=== PATIENT | male | born 1965 | race Caucasian/White ===

== ENCOUNTER 2017-03-27 17:49 | Emergency (ER) | payer BC ==
[2017-03-27] MEDS ORDERED: TETANUS/DIPHTHERIA/PERTUSSIS 0.5 ML SYRINGE IM ONE ×3 (17:57→18:31)
[2017-03-27 17:59] VITALS: BP 125/84
--- NOTE | 2017-03-27 18:57 | ED Physician Documentation ---
PD HPI UPPER EXT INJURY - Stated complaint Stated Complaint: LT HAND INJ - Chief complaint Chief Complaint: Ext Problem - History obtained from History obtained from: Patient - History of Present Illness Location: Left, Hand (dorsum) Type of injury: Foreign body (splinter 2 weeks ago and he hoped it would work out. Starting to get red and tender.) Timing - onset: How many weeks ago (2) Timing - details: Abrupt onset, Still present Associated symptoms: Swelling, Discolored (redness for few days). No: Weakness , Numbness, Tingling Review of Systems Constitutional: denies: Fever, Chills Neurologic: denies: Focal weakness, Numbness PD PAST MEDICAL HISTORY - Past Medical History Past Medical History: No Neuro: Head injury - Past Surgical History Past Surgical History: Yes Ortho: Arthroscopic surgery - Present Medications Home Medications: Ambulatory Orders Medication Instructions Recorded Confirmed Sulfamethox/Trimeth 800/160 1 each PO BID #14 tablet 03/27/17 [Bactrim Ds 800/160] - Allergies Allergies/Adverse Reactions: Allergies Allergy/AdvReac Type Severity Reaction Status Date / Time No Known Drug Allergies Allergy Verified 03/27/17 18:24 - Social History Does the pt smoke?: Yes Smoking Status: Current every day smoker Does the pt drink ETOH?: No Does the pt have substance abuse?: No - Immunizations Immunizations are current?: No Immunizations: TDAP >10years/unknown - POLST Patient has POLST: No PD ED PE NORMAL - Vitals Vital signs reviewed: Yes - General General: Alert and oriented X 3, No acute distress, Well developed/nourished - Derm Derm: Normal color, Warm and dry - Extremities Extremities: Other (Dorsum of hand with tenderness and U/S bedside found splinter FB. Mild redness without pus. ) Results - Vitals Vitals: Oxygen O2 Source Room air Procedures - FB removal FB location: Subcutaneous FB removal preparation: Local anesthesia-specify (lido with epi) Removal method: Foreceps, Incision, Under sono guidance FB removal aftercare: No complications, Patient tolerated well, Removed successfully PD MEDICAL DECISION MAKING - ED course Complexity details: re-evaluated patient (was able to get splinter out after incision. ), considered differential, d/w patient Departure - Departure Disposition: 01 Home, Self Care Clinical Impression: Foreign body hand-infection Qualifiers: Encounter type: initial encounter Laterality: left Qualified Code(s): S60.552A - Superficial foreign body of left hand, initial encounter Condition: Stable Record reviewed to determine appropriate education?: Yes Instructions: ED Foreign Body Splinter Removal Prescriptions: Sulfamethox/Trimeth 800/160 [Bactrim Ds 800/160] 1 each PO BID #14 tablet Comments: Soak hand in warm water 2-3 times daily. Bactrim twice daily for 4-5 days until infection fully gone. Tylenol or Ibuprofen as needed for pains. Recheck if not fully better over the next several days. Discharge Date/Time: 03/27/17 19:32
[2017-03-27] MEDS ORDERED: SULFAMETH/TRIMETH DS 800/160 MG TABLET PO STA (19:21)
[2017-03-27] MEDS ORDERED: IBUPROFEN 800 MG TABLET PO STA (19:21)
[2017-03-27] MEDS ORDERED: SULFAMETH/TRIMETH DS 800/160 MG TABLET PO ONE (19:29)
[2017-03-27] MEDS ORDERED: IBUPROFEN 800 MG TABLET PO ONE (19:29)
== END 2017-03-27 19:32 | disposition home or self-care (01) ==
LOC: ED 17:49
DX: S60.552A Superficial foreign body of left hand, initial encounter (principal); L08.9 Local infection of the skin and subcutaneous tissue, unspecified; W45.8XXA Other foreign body or object entering through skin, initial encounter; Z23 Encounter for immunization; F17.200 Nicotine dependence, unspecified, uncomplicated
CPT/HCPCS: 10120; 90471; 90715; 99283; A9270

== ENCOUNTER 2019-01-16 23:09 | Emergency (ER) | payer SELFPAY ==
[2019-01-16 23:58] LABS: ALBUMIN/GLOBULIN RATIO 1.4 (1.0-2.2); BILIRUBIN,TOTAL 0.3 mg/dL (0.2-1.0); CALCIUM 8.8 mg/dL (8.5-10.3); CREATININE 1.3 mg/dL (0.6-1.2); TOTAL PROTEIN 6.8 g/dL (6.7-8.2)
[2019-01-17 00:05] LABS: BASOPHILS # (AUTO) 0.1 10^3/uL (0.0-0.1); BASOPHILS % (AUTO) 0.9 %; EOSINOPHILS # (AUTO) 0.2 10^3/uL (0.0-0.7); EOSINOPHILS % (AUTO) 3.7 %; HGB - HEMOGLOBIN 13.8 g/dL (14.0-18.0); LYMPHOCYTES # (AUTO) 2.1 10^3/uL (1.5-3.5); LYMPHOCYTES % (AUTO) 33.3 %; MEAN CORPUSCULAR HEMOGLOBIN 31.5 pg (27.0-31.0); MEAN CORPUSCULAR HGB CONC 34.5 g/dL (32.0-36.0); MEAN CORPUSCULAR VOLUME 91.3 fL (80.0-94.0); MEAN PLATELET VOLUME 8.2 fL (7.4-11.4); MONOCYTES # (AUTO) 0.5 10^3/uL (0.0-1.0); MONOCYTES % (AUTO) 8.4 %; NEUTROPHILS # (AUTO) 3.4 10^3/uL (1.5-6.6); NEUTROPHILS % (AUTO) 53.7 %; PLT - PLATELET COUNT 203 10^3/uL (130-450); RED BLOOD COUNT 4.38 10^6/uL (4.70-6.10); RED CELL DISTRIBUTION WIDTH 14.3 % (12.0-15.0); WHITE BLOOD COUNT 6.4 x10^3/uL (4.8-10.8)
[2019-01-17] MEDS ORDERED: KETOROLAC 30 MG/ML VIAL IVP STA (00:13)
--- NOTE | 2019-01-17 00:14 | ED Physician Documentation ---
History of Present Illness - Stated complaint Stated Complaint: CP/SOA/HEADACHE - Chief complaint Chief Complaint: Cardiac - History obtained from History obtained from: Patient, Family - History of Present Illness Timing: How many hours ago (2) Pain level max: 6 Pain level now: 0 - Additonal information Additional information: 53-year-old male states that he was awoken from sleep by sharp left-sided chest pain. Lasted approximately 3-5 seconds. Has not recurred. He also has had a headache, mainly on the left side for the past few hours. Has not taken anything for this. No fevers. No rhinorrhea or congestion. No vision changes. No vomiting. Nothing makes it better or worse. Does drink energy drinks. 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 No leg swelling. No difficulty breathing. Review of Systems Ten Systems: 10 systems reviewed and negative Constitutional: denies: Fever, Chills Throat: denies: Sore throat Cardiac: denies: Pedal edema, Calf pain Respiratory: denies: Dyspnea, Cough, Hemoptysis, Wheezing GI: denies: Abdominal Pain, Vomiting, Diarrhea Skin: denies: Rash Musculoskeletal: denies: Neck pain, Back pain Neurologic: denies: Headache PD PAST MEDICAL HISTORY - Past Medical History Past Medical History: No - Past Surgical History Past Surgical History: Yes Ortho: Arthroscopic surgery - Present Medications Home Medications: Ambulatory Orders Medication Instructions Recorded Confirmed Sulfamethox/Trimeth 800/160 1 each PO BID #14 tablet 03/27/17 [Bactrim Ds 800/160] - Allergies Allergies/Adverse Reactions: Allergies Allergy/AdvReac Type Severity Reaction Status Date / Time No Known Drug Allergies Allergy Verified 03/27/17 18:24 - Social History Does the pt smoke?: Yes Smoking Status: Current every day smoker Does the pt drink ETOH?: No Does the pt have substance abuse?: No - Immunizations Immunizations are current?: Yes Immunizations: TDAP >10years/unknown - POLST Patient has POLST: No PD ED PE NORMAL - Vitals Vital signs reviewed: Yes - General General: Alert and oriented X 3, No acute distress, Well developed/nourished - HEENT HEENT: PERRL, Ears normal, Moist mucous membranes, Pharynx benign - Neck Neck: Supple, no meningeal sign - Cardiac Cardiac: RRR, No murmur, Strong equal pulses - Respiratory Respiratory: No respiratory distress, Clear bilaterally - Abdomen Abdomen: Soft, Non tender, Non distended - Derm Derm: Warm and dry - Extremities Extremities: No edema, No calf tenderness / cord - Neuro Neuro: Alert and oriented X 3 - Psych Psych: Normal mood, Normal affect Results - Vitals Vitals: Vital Signs - 24 hr 01/16/19 01/16/19 01/17/19 23:14 23:26 01:11 Temperature 36.7 C 36.9 C Heart Rate 74 68 70 Respiratory 16 18 15 Rate Blood Pressure 115/74 114/75 102/65 O2 Saturation 98 97 98 Oxygen O2 Source Room air - EKG (time done) 2321 Rate: Rate (enter#) (69) Rhythm: NSR [place]: Normal Intervals: Normal [place] QRS: Normal Ischemia: Normal ST segments - Labs Labs: Laboratory Tests 01/16/19 01/16/19 01/16/19 23:30 23:30 23:30 WBC 6.4 RBC 4.38 L Hgb 13.8 L Hct 40.0 L MCV 91.3 MCH 31.5 H MCHC 34.5 RDW 14.3 Plt Count 203 MPV 8.2 Neut # (Auto) 3.4 Lymph # (Auto) 2.1 [place] # (Auto) 0.5 Eos # (Auto) 0.2 Baso # (Auto) 0.1 Absolute Nucleated RBC 0.00 Nucleated RBC % 0.0 Sodium 137 Potassium 3.6 Chloride 106 Carbon Dioxide 24 Anion Gap 7.0 BUN 19 Creatinine 1.3 H Estimated GFR (MDRD) 58 L Glucose 104 H Calcium 8.8 Total Bilirubin 0.3 AST 23 ALT 17 Alkaline Phosphatase 44 Troponin I < 0.04 Total Protein 6.8 Albumin 4.0 Globulin 2.8 Albumin/Globulin Ratio 1.4 Lipase 48 - Rads (name of study) cxr Radiology: Prelim report reviewed, EMP read contemporaneously, See rad report (No acute disease) PD MEDICAL DECISION MAKING - ED course Complexity details: reviewed results, re-evaluated patient, considered differential (No ST elevation ND, no aortic dissection, no PE, no tension pneumothorax, no aortic aneurysm), d/w patient, d/w family ED course: 53-year-old male with what sounds like palpitations. Does not appear consistent with acute coronary syndrome. No acute findings on EKG. No abnormalities on telemetry or laboratory testing. Headache resolved. Patient counseled regarding signs and symptoms for which I believe and urgent re-evaluation would be necessary. Patient with good understanding of and agreement to plan and is comfortable going home at this time This document was made in part using voice recognition software. While efforts are made to proofread this document, sound alike and grammatical errors may occur. Departure - Departure Disposition: 01 Home, Self Care Clinical Impression: Intermittent palpitations Condition: Good Instructions: ED Palpitations Follow-Up: your,doctor in 1 week [Other] Comments: Return if you worsen. Follow-up with your doctor for further care. There are no acute abnormalities on your testing tonight. Forms: Activity restrictions Discharge Date/Time: 01/17/19 01:15
--- NOTE | 2019-01-17 00:17 | XRAY Report ---
Reason: chest pain Procedure Date: 01/16/2019 Accession Number: [id number] / [id number] Procedure: XR - Chest 1 View X-Ray CPT Code: 90414 FULL RESULT: EXAM: CHEST RADIOGRAPHY EXAM DATE: 01/16/2019 11:54 PM. CLINICAL HISTORY: Chest pain. COMPARISON: None. TECHNIQUE: 1 view. FINDINGS: Lungs/Pleura: No dense consolidation. No large effusion or pneumothorax. No pulmonary edema. Mediastinum: Heart and mediastinal contours are unremarkable. Other: None. IMPRESSION: No acute radiographic pulmonary abnormalities. RADIA
[2019-01-17 01:12] VITALS: BP 102/65
== END 2019-01-17 01:15 | disposition home or self-care (01) ==
LOC: ED 23:09
DX: R00.2 Palpitations (principal); F17.200 Nicotine dependence, unspecified, uncomplicated
CPT/HCPCS: 36415; 71045; 80053; 83690; 84484; 85025; 93005; 96374; 99283

== ENCOUNTER 2019-04-26 17:30 | Emergency (ER) | payer BC ==
--- NOTE | 2019-04-26 18:46 | ED Physician Documentation ---
PD HPI LOWER EXT INJURY - Stated complaint Stated Complaint: LT LEG REDNESS AND PX - Chief complaint Chief Complaint: Ext Problem - History obtained from History obtained from: Patient - History of Present Illness PD HPI LOW EXT INJURY LOCATION: Left (He developed pain of the medial thigh on the left that over the last few days has moved up a little bit with some swelling and redness. No chest pain or shortness of breath. No injury.) Review of Systems Constitutional: reports: Reviewed and negative Throat: reports: Reviewed and negative Cardiac: reports: Reviewed and negative PD PAST MEDICAL HISTORY - Past Surgical History Past Surgical History: Yes Ortho: Arthroscopic surgery - Present Medications Home Medications: Ambulatory Orders Medication Instructions Recorded Confirmed Sulfamethox/Trimeth 800/160 1 each PO BID #14 tablet 03/27/17 [Bactrim Ds 800/160] Rivaroxaban [Xarelto] 15 mg PO BID 21 Days #42 tablet 04/26/19 Rivaroxaban [Xarelto] 20 mg PO DAILY #30 tablet 04/26/19 - Allergies Allergies/Adverse Reactions: Allergies Allergy/AdvReac Type Severity Reaction Status Date / Time No Known Drug Allergies Allergy Verified 03/27/17 18:24 - Social History Does the pt smoke?: Yes Smoking Status: Current every day smoker Does the pt drink ETOH?: No Does the pt have substance abuse?: No - Immunizations Immunizations are current?: Yes Immunizations: TDAP >10years/unknown - POLST Patient has POLST: No PD ED PE NORMAL - Vitals Vital signs reviewed: Yes - General General: Alert and oriented X 3, No acute distress - Extremities Extremities: Other (Mild tenderness, swelling, and cord formation of the medial thigh over the sartorius.) - Neuro Neuro: Alert and oriented X 3, Normal speech Results - Vitals Vitals: Vital Signs - 24 hr 04/26/19 04/26/19 17:50 19:09 Temperature 36.6 C Heart Rate 76 70 Respiratory 16 16 Rate Blood Pressure 125/79 142/79 H O2 Saturation 98 98 Oxygen O2 Source Room air PD MEDICAL DECISION MAKING - ED course ED course: 53-year-old gentleman with superficial venous thrombosis of the left leg, it is, as far as superficial thromboses ago, pretty extensive and starting to approach the CFV. As discussed with the patient I recommended anticoagulation pending follow-up and he agrees. Departure - Departure Disposition: 01 Home, Self Care Clinical Impression: Acute superficial venous thrombosis of left lower extremity Condition: Good Record reviewed to determine appropriate education?: Yes Instructions: ED DVT Prescriptions: Rivaroxaban [Xarelto] 15 mg PO BID 21 Days #42 tablet Rivaroxaban [Xarelto] 20 mg PO DAILY #30 tablet Comments: The blood thinner starts at 15 mg twice a day for the first 3 weeks, then just 20 mg once a day. You need to follow-up with your doctor in that timeframe, consider repeat ultrasound to see if it resolves, if so they may want to stop the blood thinner. Return if worse. Discharge Date/Time: 04/26/19 20:24
[2019-04-26 19:10] VITALS: BP 142/79
[2019-04-26] MEDS ORDERED: RIVAROXABAN 15 MG TABLET PO STA (20:14)
--- NOTE | 2019-04-26 20:14 | Ultrasound Report ---
Reason: leg pain Procedure Date: 04/26/2019 Accession Number: [id number] / [id number] Procedure: US - Duplex Ext Veins Left CPT Code: FULL RESULT: EXAM: LEFT LOWER EXTREMITY VENOUS ULTRASOUND EXAM DATE: 04/26/2019 07:02 PM. CLINICAL HISTORY: Leg pain. Left leg pain. COMPARISON: None. TECHNIQUE: Real-time sonographic vascular imaging was performed by the vice president of brand management through the lower extremity utilizing both color-flow and Doppler spectral analysis. Multiple financial sales representative static images were saved for review. FINDINGS: Common Femoral Vein (CFV): Normal. CFV-GSV [place]: Normal. Profunda Femoral Vein (PFV): Normal. Femoral Vein (FV) Prox: Normal. Femoral Vein (FV) Mid: Normal. Femoral Vein (FV) Dist: Normal. Popliteal Vein: Normal. Posterior Tibial Veins: Normal. Peroneal Veins: Normal. Other: Left greater saphenous vein superficial nonocclusive thrombosis seen at the proximal to distal aspect is in the thigh. IMPRESSION: No evidence for deep venous thrombosis. Left greater saphenous vein superficial nonocclusive thrombosis seen at the proximal to distal aspect is in the thigh. [facility] The call report notification system was initiated by Dr. Leydi Kennedy at 08:09 PM on 04/26/2019. The above critical result findings were discussed with Semaj Fox by Dr. Leydi Kennedy at 08:12 PM on 04/26/2019.
== END 2019-04-26 20:24 | disposition home or self-care (01) ==
LOC: ED 17:30
DX: I82.812 Embolism and thrombosis of superficial veins of left lower extremity (principal); F17.200 Nicotine dependence, unspecified, uncomplicated
CPT/HCPCS: 93971; 99283; A9270

== ENCOUNTER 2019-08-11 11:23 | Emergency (ER) | payer BC ==
[2019-08-11 12:02] LABS: BASOPHILS # (AUTO) 0.1 10^3/uL (0.0-0.1); BASOPHILS % (AUTO) 0.7 %; EOSINOPHILS # (AUTO) 0.2 10^3/uL (0.0-0.7); EOSINOPHILS % (AUTO) 2.6 %; HGB - HEMOGLOBIN 14.4 g/dL (14.0-18.0); LYMPHOCYTES # (AUTO) 1.5 10^3/uL (1.5-3.5); MEAN CORPUSCULAR HEMOGLOBIN 31.1 pg (27.0-31.0); MEAN CORPUSCULAR HGB CONC 33.2 g/dL (32.0-36.0); MEAN CORPUSCULAR VOLUME 93.7 fL (80.0-94.0); MEAN PLATELET VOLUME 9.4 fL (7.4-11.4); MONOCYTES # (AUTO) 0.6 10^3/uL (0.0-1.0); MONOCYTES % (AUTO) 8.4 %; NEUTROPHILS % (AUTO) 67.9 %; PLT - PLATELET COUNT 191 10^3/uL (130-450); RED BLOOD COUNT 4.63 10^6/uL (4.70-6.10); RED CELL DISTRIBUTION WIDTH 13.3 % (12.0-15.0); WHITE BLOOD COUNT 7.4 x10^3/uL (4.8-10.8)
[2019-08-11 12:12] LABS: ALBUMIN 4.1 g/dL (3.2-5.5); ALBUMIN/GLOBULIN RATIO 1.3 (1.0-2.2); BILIRUBIN,TOTAL 0.7 mg/dL (0.2-1.0); CALCIUM 8.9 mg/dL (8.5-10.3); CREATININE 1.3 mg/dL (0.6-1.2); TOTAL PROTEIN 7.2 g/dL (6.7-8.2)
[2019-08-11] MEDS ORDERED: ASPIRIN CHEW 81 MG TABLET PO STA (12:15)
--- NOTE | 2019-08-11 12:17 | ED Physician Documentation ---
PD HPI CHEST PAIN - Stated complaint Stated Complaint: CP/DIZZINESS - Chief complaint Chief Complaint: Cardiac - History obtained from History obtained from: Patient - History of Present Illness Timing - onset: Last night (53-year-old gentleman with history of DVT on warfarin presents with substernal chest pressure starting last night that developed into radiating back pain today. The pain is not severe but is concerning because of its location. It was fairly constant. He also notes that he has chronically in a regular heartbeat and he felt more pauses and presyncope last night than normal. He had a stress test before, he says it was negative but it was 7 or 8 years ago. His legs are bothering him at all now.) Review of Systems Ten Systems: 10 systems reviewed and negative Constitutional: denies: Fever, Chills, Fatigue Cardiac: denies: Pedal edema, Calf pain Respiratory: denies: Dyspnea, Cough, Hemoptysis, Wheezing PD PAST MEDICAL HISTORY - Past Surgical History Past Surgical History: Yes Ortho: Arthroscopic surgery - Present Medications Home Medications: Ambulatory Orders Medication Instructions Recorded Confirmed Albuterol Sulf [Ventolin Hfa 1 - 2 puffs INH Q4HR PRN #1 inhaler 08/11/19 Inhaler] Rivaroxaban [Xarelto] 10 mg PO DAILY 08/11/19 - Allergies Allergies/Adverse Reactions: Allergies Allergy/AdvReac Type Severity Reaction Status Date / Time No Known Drug Allergies Allergy Verified 08/11/19 11:37 - Social History Does the pt smoke?: Yes Smoking Status: Current every day smoker Does the pt drink ETOH?: No Does the pt have substance abuse?: No - Immunizations Immunizations are current?: Yes Immunizations: TDAP >10years/unknown - POLST Patient has POLST: No PD ED PE NORMAL - Vitals Vital signs reviewed: Yes - General General: Alert and oriented X 3, No acute distress - HEENT HEENT: PERRL, EOMI - Neck Neck: Supple, no meningeal sign, No bony TTP - Cardiac Cardiac: RRR, No murmur - Respiratory Respiratory: No respiratory distress, Clear bilaterally - Abdomen Abdomen: Non tender - Back Back: No spinal TTP - Derm Derm: Normal color, Warm and dry - Extremities Extremities: No edema, No calf tenderness / cord - Neuro Neuro: Alert and oriented X 3, Normal speech Results - Vitals Vitals: Vital Signs - 24 hr 08/11/19 08/11/19 08/11/19 11:34 12:20 14:14 Temperature 37 C Heart Rate 70 65 61 Respiratory 20 16 18 Rate Blood Pressure 144/80 H 128/106 H 101/71 O2 Saturation 98 100 99 Oxygen O2 Source Room air - EKG (time done) 1139 Rate: Rate (enter#) (69) Rhythm: NSR [place]: Normal Intervals: Normal [place] QRS: Normal Ischemia: Normal ST segments Computer interpretation: Agree with computer - Labs Labs: Laboratory Tests 08/11/19 08/11/19 08/11/19 11:45 11:50 11:50 WBC 7.4 RBC 4.63 L Hgb 14.4 Hct 43.4 MCV 93.7 MCH 31.1 H MCHC 33.2 RDW 13.3 Plt Count 191 MPV 9.4 Neut # (Auto) 5.0 Lymph # (Auto) 1.5 [place] # (Auto) 0.6 Eos # (Auto) 0.2 Baso # (Auto) 0.1 Absolute Nucleated RBC 0.00 Nucleated RBC % 0.0 PT 26.9 H INR 2.5 H Sodium 139 Potassium 4.1 Chloride 104 Carbon Dioxide 27 Anion Gap 8.0 BUN 15 Creatinine 1.3 H Estimated GFR (MDRD) 58 L Glucose 121 H Calcium 8.9 Total Bilirubin 0.7 AST 18 ALT 17 Alkaline Phosphatase 45 Troponin I High Sens Total Protein 7.2 Albumin 4.1 Globulin 3.1 Albumin/Globulin Ratio 1.3 Lipase 34 08/11/19 08/11/19 11:50 13:55 WBC RBC Hgb Hct MCV MCH MCHC RDW Plt Count MPV Neut # (Auto) Lymph # (Auto) [place] # (Auto) Eos # (Auto) Baso # (Auto) Absolute Nucleated RBC Nucleated RBC % PT INR Sodium Potassium Chloride Carbon Dioxide Anion Gap BUN Creatinine Estimated GFR (MDRD) Glucose Calcium Total Bilirubin AST ALT Alkaline Phosphatase Troponin I High Sens 3.6 3.4 Total Protein Albumin Globulin Albumin/Globulin Ratio Lipase - Rads (name of study) CTA chest Radiology: EMP read contemporaneously (Airways disease and emphysema without evidence of dissection or PE.) PD MEDICAL DECISION MAKING - ED course ED course: 53-year-old gentleman with greater than 12 hours of chest pain, it radiates to the back so concern for dissection was addressed with a CT angiogram that was negative. This was also negative for PE. His INR is therapeutic, history of remote DVT. 2 troponins in the department were negative and unchanged. Follow- up for stress testing was advised. Departure - Departure Disposition: Home, Self Care Clinical Impression: Chest pain Qualifiers: Chest pain type: unspecified Qualified Code(s): R07.9 - Chest pain, unspecified Emphysema of lung Qualifiers: Emphysema type: panlobular Qualified Code(s): J43.1 - Panlobular emphysema Condition: Good Record reviewed to determine appropriate education?: Yes Instructions: COPD Dc, ED Chest Pain Atypical Unkn Cause Prescriptions: Albuterol Sulf [Ventolin Hfa Inhaler] 1 - 2 puffs INH Q4HR PRN #1 inhaler PRN Reason: Shortness Of Air/Wheezing Comments: Follow-up with your doctor, next available appointment. Discuss stress testing. Continue not to smoke. Your INR today is therapeutic at 2.5. Forms: Activity restrictions
--- NOTE | 2019-08-11 12:23 | XRAY Report ---
Reason: chest pain Procedure Date: 08/11/2019 Accession Number: [id number] / [id number] Procedure: XR - Chest 2 View X-Ray CPT Code: 70801 FULL RESULT: EXAM: CHEST RADIOGRAPHY EXAM DATE: 08/11/2019 12:01 PM. CLINICAL HISTORY: Chest pain. COMPARISON: CHEST 1 VIEW 01/16/2019 11:40 PM. TECHNIQUE: 2 views. FINDINGS: Lungs/Pleura: No focal opacities evident. No pleural effusion. No pneumothorax. Mediastinum: Heart and mediastinal contours are unremarkable. Other: There are postop changes in the right humeral head, unremarkable. IMPRESSION: Negative 2-view chest radiography. RAD[facility]
[2019-08-11] MEDS ORDERED: IOVERSOL 320 100 ML VIAL IVP ONE ×2 (12:33→12:44)
[2019-08-11 12:35] LABS: INR 2.5 (0.8-1.2); PT - PROTHROMBIN TIME 26.9 secs (9.9-12.6)
--- NOTE | 2019-08-11 13:09 | CT Report ---
Reason: aorta protocol!, chest/back pain Procedure Date: 08/11/2019 Accession Number: [id number] / [id number] Procedure: CT - ANGIO CHEST W/WO CPT Code: FULL RESULT: EXAM: CT ANGIOGRAM CHEST EXAM DATE: 08/11/2019 12:41 PM. CLINICAL HISTORY: Aorta protocol!, chest/back pain. COMPARISON: None. TECHNIQUE: Routine helical imaging was performed through the chest in the arterial phase. IV contrast: 80ML OPTIRAY 320. Reconstructions: Coronal, sagittal, and 3D MIP reconstructions of the aorta. FINDINGS: Vascular Structures: No intramural hematoma, aneurysm or dissection. Lungs/Pleura: No effusions. Mild cylindrical bronchiectasis/bronchiolectasis. Moderate centrilobular emphysema. Moderate paraseptal emphysema with large blebs at the apices. Biapical pleural-parenchymal thickening. Bleb at the right lung base. Respiratory motion artifact. Mediastinum: 3 vessel coronary artery atherosclerotic calcifications. Heart is normal in size. No pericardial effusion. No mediastinal or hilar lymphadenopathy. Upper Abdomen: Calcifications in the right hepatic lobe. Osseous structures: Right rotator cuff repair. Other: None. IMPRESSION: 1. No aneurysm or dissection. 2. Airways disease and moderate emphysema RADIA
[2019-08-11 14:15] VITALS: BP 101/71
== END 2019-08-11 14:30 | disposition home or self-care (01) ==
LOC: ED 11:23
DX: R07.89 Other chest pain (principal); J43.1 Panlobular emphysema; F17.200 Nicotine dependence, unspecified, uncomplicated; Z86.718 Personal history of other venous thrombosis and embolism; Z79.01 Long term (current) use of anticoagulants
CPT/HCPCS: 36415; 71046; 71275; 80053; 83690; 84484; 85025; 85610; 93005; 99284; A9270; Q9967

== ENCOUNTER 2019-08-19 08:00 | Outpatient (CLI) | payer BC ==
[2019-08-19 12:44] LABS: CHOL/HDL RATIO 5.6 (<5.0); CHOLESTEROL 209 mg/dL; HDL CHOLESTEROL 37 mg/dL; LDL CHOLESTEROL,CALCULATED 150 mg/dL; LDL/HDL RATIO 4.1 (<3.6); VLDL CHOLESTEROL 22 mg/dL
== END 2019-08-19 23:59 | disposition home or self-care (01) ==
LOC: LAB.WCP 08:00
PROVIDERS: ATTEND Physician Assistant Medical
DX: R07.9 Chest pain, unspecified (principal)
CPT/HCPCS: 36415; 80061; 83721